=== PATIENT | female | born 1990 | race African-American/Black ===

== ENCOUNTER 2021-03-05 14:22 | Emergency (ER) | payer OTHER, BC, SELFPAY ==
--- NOTE | 2021-03-05 14:31 | ED.UPPEXIN ---
HPI - Extremity Injury (Upper) General Chief Complaint: Extremity Injury, Upper Stated Complaint: lt hand ring & pinkie finger injury Time Seen by Provider: 03/05/21 14:31 Source: patient and RN notes reviewed History of Present Illness HPI narrative: Patient is a 30-year-old female who presents the urgent care with complaints of cuts to the left pinky finger and left ring finger. Patient states that it happened approximately 30 minutes prior to arrival while trying to hold the door open it [employer]. Patient states that she cut her fingers on the metal door frame. Patient has applied bandages to the fingers but otherwise has not done anything [id number] for her symptoms. Patient states she did reported to the information systems manager of [employer] over [employer]. No other acute complaints or injuries. No acute distress noted. Patient aware of the plan of care. Some parts of this dictation were generated by voice recognition software and may contain typographical and/or grammatical inaccuracies. Related Data Home Medications Medication Instructions Recorded Confirmed No Home Medications 03/05/21 03/05/21 Allergies Allergy/AdvReac Type Severity Reaction Status Date / Time codeine Allergy Unknown Unknown Verified 03/05/21 14:37 Review of Systems Review of Systems: CONSTITUTIONAL: Denies fever, chills, or sweats. EYES: Denies visual changes, redness, or discharge. ENT: Denies rhinorrhea, congestion, sore throat, or otalgia. CARDIOVASCULAR: Denies chest pain, palpitations, or edema. RESPIRATORY: Denies cough or dyspnea. GASTROINTESTINAL: Denies abdominal pain, nausea, vomiting, or diarrhea. GENITOURINARY: Denies dysuria or hematuria. SKIN: Reports of lacerations to the fourth and fifth digit of the left hand MUSCULOSKELETAL: Denies back pain, joint pain, or myalgia. NEUROLOGIC: Denies headache, numbness, or weakness. All other systems reviewed are negative, except as documented in HPI. PMFSH Social History Social History Smoking status: Never smoker Alcohol intake: current Comments At the time of my signature, I reviewed and agree with the nursing past medical, surgical, social, and family history. There is no relevant family history pertinent to the patient complaint. Exam Narrative: GENERAL: This is a well-nourished, well-developed patient, in no apparent distress. HEAD: normocephalic, atraumatic. EYES: PERRL. Sclera clear/white. Vision is grossly intact. EARS: External ears normal NOSE: External nose normal with no obvious nasal discharge, nares without redness, no rhinorrhea. THROAT: Mucous membranes moist NECK: Neck supple CARDIOVASCULAR: Regular rate and rhythm without murmurs, gallops, or rubs. RESPIRATORY: Clear to auscultation. Breath sounds equal bilaterally. No wheezes, rales, or rhonchi. SKIN: 0.25 circular superficial skin abrasion just proximal of the cuticle on the left fifth digit/pinky finger. Pinpoint superficial abrasion to the cuticle of the left ring finger. NEURO: awake, alert, and oriented to person, place and time. There were no obvious focal neurologic abnormalities. EXTREMITIES: No clubbing, cyanosis, or edema. Positive strong left radial pulse with capillary refill less than 2 seconds. Course Vital Signs Vital signs: Vital Signs Temperature 98.6 F 03/05/21 14:34 Pulse Rate 110 H 03/05/21 14:34 Respiratory Rate 16 03/05/21 14:34 Blood Pressure 146/111 H 03/05/21 14:34 Pulse Oximetry 100 03/05/21 14:34 Temperature 98.6 F 03/05/21 14:34 Pulse Rate 110 H 03/05/21 14:34 Respiratory Rate 16 03/05/21 14:34 Blood Pressure 146/111 H 03/05/21 14:34 Pulse Oximetry 100 03/05/21 14:34 Reviewed-patient is informed that they may have pre-hypertension or hypertension based on a blood pressure reading in the department. I recommend the patient call the primary care provider listed on their discharge instructions or a physician of their choice this week to arrang
[2021-03-05 14:34] VITALS: BP 146/111; PULSE 110; RESP 16; TEMP 37; O2SAT 100
== END 2021-03-05 14:44 | disposition home or self-care (01) ==
PROVIDERS: Emergency Provider Nurse Practitioner Family
DX: S60.417A Abrasion of left little finger, initial encounter (principal); W26.8XXA Contact with other sharp object(s), not elsewhere classified, initial encounter; Y92.511 Restaurant or cafe as the place of occurrence of the external cause
CPT/HCPCS: 99213; G0463

== ENCOUNTER 2021-08-26 02:31 | Inpatient (IN) | payer BC, SELFPAY ==
[2021-08-26] VITALS (17 sets, daily range): BP systolic 124–180; BP diastolic 70–141; PULSE 72–147; RESP 16; TEMP 36.7–36.8; O2SAT 99–100; BMI 39.2
--- NOTE | 2021-08-26 03:04 | LDADM ---
This patient, Mireya Palomino, was admitted to Labor/Delivery/Recovery 105 on 08/26/21 at 02:31. Plans for labor, pain management and were discussed with patient. Patient/family oriented to hospital policies and general routines including ID bracelet, bed and alarms, visiting hours, pain management, procedures, bathroom and other care routines, personal items, smoking policy, room service/diet and guest tray routines, security routines, and visiting hours. Patient/Family are encouraged to report perceived risks to care and to ask questions if they do not understand what they are told or what they should do. See OBIX for further documentation.
[2021-08-26] MEDS: OXYTOCIN 30 UNITS/NS 500 ML 30 UNITS/500 ML BAG 999 UNITS (03:30)
--- NOTE | 2021-08-26 03:35 | PM.IMHP ---
H&P: HPI History of Present Illness Date/Time: 08/26/21 03:35 Chief Complaint: Intrauterine Narrative: 31 yo at unknown GA presents in labor. Pt has had no care in this . Pt states she did not know she was until 7 months. She states she received an US somewhere but she cannot recall where. She states she was given the due date of 08/30/21. Pt was found to be 8-9cm upon arrival. Pt does state she is Bipolar. She also suffers depression/anxiety. Pt also states she had preeclampsia in her G1. Review of Systems Cardiovascular: Cardiovascular: Denies chest pain, Denies leg edema, Denies palpitations, Denies dyspnea and Denies dyspnea on exertion Respiratory: Respiratory: Denies cough, Denies dyspnea and Denies dyspnea on exertion Gastrointestinal: Gastrointestinal: Denies abdominal pain, Denies constipation, Denies diarrhea, Denies nausea and Denies vomiting Genitourinary: Genitourinary: Denies hematuria, Denies urinary frequency, Denies dysuria, Denies pelvic pain, Denies urinary incontinence and Denies vaginal discharge Neurologic: Reports system reviewed and no additional complaints, except as documented Psychiatric: Psychiatric: Reports no additional psychiatric complaints Endocrine: Endocrine: Denies palpitations PMFSH Social History Social History Smoking status: Never smoker Alcohol intake: current Spiritual care concerns: No Meds Home Medications and Allergies Home Medications Medication Instructions Recorded Confirmed Type No Home Medications 03/05/21 03/05/21 History Allergies Allergy/AdvReac Type Severity Reaction Status Date / Time codeine Allergy Unknown Unknown Verified 03/05/21 14:37 Vital Signs Vital Signs - 24 hr 08/26/21 02:48 08/26/21 03:02 08/26/21 03:04 Pulse Rate 109 H 147 H Blood Pressure 156/106 H 124/109 H Pulse Oximetry 100 08/26/21 03:09 08/26/21 03:31 Pulse Rate 104 H Blood Pressure 148/84 H Pulse Oximetry 99 Exam Const: General: no acute distress Eyes: EOM: EOMs intact bilaterally Neck: Neck: supple Thyroid: thyroid normal Chest: Breast/axilla inspection: normal inspection of the breasts Breast/axilla palpation: normal palpation of the breasts, normal palpation of the axillae and no axillary lymphadenopathy Resp: Effort & Inspection: normal respiratory effort Auscultation: clear to auscultation bilaterally Cardio: Rate: regular rate Rhythm: regular rhythm GI: Inspection: non-distended and other (Gravid) GI Palp: Yes Soft to palpation, No Tenderness to palpation present (GI) and No Guarding due to palpation present (GI) Auscultation: normal bowel sounds : Speculum Exam - Vagina: No vaginal bleeding OB/external & speculum: external exam normal; No vaginal bleeding Skin: General skin exam: normal color and no rashes or lesions noted Neuro: Cognition (Neuro): normal cognition Speech: normal speech Extrem: General: normal to inspection Psych: Mental Status: mental status grossly normal Affect: normal affect Assessment and Plan Assessment and plan (1) Supervision of high risk , unspecified, unspecified trimester: Code(s): O09.90 - Supervision of high risk , unspecified, unspecified trimester Status: Acute Assessment and Plan: 31 yo at unknown GA no care pt presents in labor cvx 8-9 cm admit to L&D routine admission orders expectant management (2) No care in current : Code(s): O09.30 - Supervision of with insufficient care, unspecified trimester Status: Acute (3) History of pre-eclampsia in prior , currently : Code(s): O09.299 - Supervision of with other poor reproductive or obstetric history, unspecified trimester Status: Acute Assessment and Plan: elevated BP on admission will draw PIH labs continue to monitor BP (4) [place]
--- NOTE | 2021-08-26 03:44 | PM.OBPRVD ---
OB - Delivery Note Procedure Procedure: Patient pushed for a spontaneous vaginal delivery. A body cord was noted x1. The fetus was delivered atraumatically and placed on the maternal abdomen. The cord was clamped and cut after 1 minute of life. The cord was double clamped and cut and a segment of cord was collected for cord gases. Cord blood was collected for blood type and Coomb's testing. The placenta delivered spontaneously and was noted to be intact. The perineum was inspected and there were no lacerations noted. The uterus was firm and good hemostasis was noted. The patient and fetus were stable in the delivery room. Events: No Care Induction method: None Delivery augmentation: Rupture of Membranes Delivery monitor: External FHT Route of delivery: Episiotomy description: None Laceration Description: None Specimen: No Quantitative Blood Loss (ml): 200 Anesthesia type: None Disposition: Floor () Complications: No immediate complications [place] Baby Date of : 08/26/21 Time of : 03:20 Weeks of gestation at delivery: 39 gender: Female Weight (pounds): 8 Weight (ounces): 2 presentation: vertex position: Right Occiput Anterior Placenta delivery description: Spontaneous Cord Vessel Description: 3 Vessels and Around Body score one minute: 8 score five minutes: 9
[2021-08-26 06:33] LABS: Basophils Percent Auto 0.2 % (0.2-1.2); Hematocrit 33.2 % (37.0-47.0); Hemoglobin 9.4 g/dL (12.0-15.0); Immature Granulocyte Absolute 0.13 K/mm3 (0.00-0.031); Immature Granulocyte Percent A 0.7 % (0-0.5); Lymphocytes Absolute Auto 1.08 K/mm3 (0.9-3.2); Mean Corpuscular HGB Conc 28.3 g/dl (32-36); Mean Corpuscular Volume 88.3 fl (80-100); Mean Platelet Volume 12.7 fl (7.4-10.4); Monocytes Absolute Auto 0.9 K/mm3 (0.1-0.6); Neutrophils Absolute Auto 15.8 K/mm3 (1.3-6.7); Neutrophils Percent Auto 88.1 % (45.5-73.1); Nucleated Red Blood Cells Absolute Auto 0.1 K/mm3 (0.0-0.012); Nucleated Red Blood Cells Perc 0.3 % (0.0-0.2); Platelet Count Result 205 k/mm3 (150-375); Red Blood Count 3.76 M/mm3 (4.2-5.4); Red Cell Distribution Width 17.2 % (11.5-14.5)
[2021-08-26 06:50] LABS: Alanine Aminotransferase 36 U/L (4-35); Alkaline Phosphatase 171 U/L (38-126); Anion Gap 7 mmol/L (8-16); Aspartate Amino Transferase 44 U/L (14-36); Bilirubin,Total 0.4 mg/dL (0.2-1.3); Blood Urea Nitrogen 7 mg/dL (7-17); Calcium 8.8 mg/dL (8.4-10.2); Carbon Dioxide 21 mmol/L (22-30); Chloride 106 mmol/L (98-107); Estimated CRCL calculation 128 ml/min; Estimated Glomerular Filt Rate > 60; Glucose 97 mg/dL (65-110); Potassium 4.2 mmol/L (3.4-5.0); Sodium 134 mmol/L (137-145)
[2021-08-26 06:56] LABS: Platelet Estimate Adequate (Adequate)
[2021-08-26 06:57] LABS: Anisocytosis 1+ (NORMAL); Hypochromasia 1+ (NORMAL)
[2021-08-26] MEDS: DOCUSATE SODIUM 100 MG CAPSULE PO ×2 (07:38→16:30)
[2021-08-26] MEDS: IBUPROFEN 600 MG TABLET PO ×3 (07:38→19:52)
[2021-08-26] MEDS: MULTIVIT/MIN/PREN/FOL AC/IRON TABLET 1 TAB PO (07:38)
[2021-08-26 07:53] LABS: Rubella IgG Antibody 15.1 IU/ML
[2021-08-26 07:54] LABS: Rapid Plasma Reagin Non-Reactive (NonReactive)
[2021-08-26 07:58] LABS: Hepatitis B Surface Antigen Negative (Negative)
[2021-08-26 08:05] LABS: HIV 1/2 Ab P24 Ag Result Negative (Negative)
--- NOTE | 2021-08-26 12:48 | PCCCNOTE ---
Recvd notification that pt. did not have any prior care. Pt. 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 Upon arrival to the hospital, it was reported by nursing that pt. was acting irrational and refused labs drawn as well as drug screen - all this occurred during labor. Baby's UDS was negative for everything and no umbilical cord drug screen was ordered. Pt. has since been appropriate with baby per MJ Chakraborty. Pt's spouse Cristina at bedside, sleeping. Pt. reports she and new baby girl will be living at home with FOB Cristina, and two other children. Pt. reports recently joining a support group for moms regarding post support. Pt. states her family is also involved in helping with childcare. Pt. reports having all necessary supplies for new baby and states she is not interested in WIC or Food [place]. resources provided to pt, which includes these phone numbers, in case needed. Pt. denies prior involvement with DCFS and denies drug use. Pt. reports being established with a counselor for her anxiety and depression, but wouldn't provide counselor name. Pt. states her next appt with her counselor, is Saturday09/01/21. Pt. states she is not on any medication. Psych consult was ordered; awaiting results from Dr. Corrigan. MJ Chakraborty updated regarding our conversation.
[2021-08-26] MEDS: POLYSACCHARIDE IRON COMPLEX 150 MG CAPSULE PO (16:30)
[2021-08-26] MEDS: ACETAMINOPHEN 325 MG TABLET 650 MG PO ×2 (16:30→23:13)
[2021-08-27] MEDS: IBUPROFEN 600 MG TABLET PO ×2 (03:52→09:09)
[2021-08-27 05:43] LABS: Basophils Absolute Auto 0.1 K/mm3 (0.0-0.1); Basophils Percent Auto 0.4 % (0.2-1.2); Eosinophils Absolute Auto 0.1 K/mm3 (0-0.3); Eosinophils Percent Auto 0.8 % (0-4.4); Hematocrit 29.2 % (37.0-47.0); Hemoglobin 8.6 g/dL (12.0-15.0); Immature Granulocyte Absolute 0.15 K/mm3 (0.00-0.031); Immature Granulocyte Percent A 1.1 % (0-0.5); Lymphocytes Absolute Auto 2.66 K/mm3 (0.9-3.2); Lymphocytes Percent Auto 20.2 % (18.3-44.2); Mean Corpuscular HGB Conc 29.5 g/dl (32-36); Mean Corpuscular Hemoglobin 25.4 pg (26-34); Mean Corpuscular Volume 86.1 fl (80-100); Mean Platelet Volume 12.9 fl (7.4-10.4); Monocytes Absolute Auto 1.1 K/mm3 (0.1-0.6); Monocytes Percent Auto 8.4 % (2.6-8.5); Neutrophils Absolute Auto 9.1 K/mm3 (1.3-6.7); Neutrophils Percent Auto 69.1 % (45.5-73.1); Nucleated Red Blood Cells Absolute Auto 0.2 K/mm3 (0.0-0.012); Nucleated Red Blood Cells Perc 1.3 % (0.0-0.2); Platelet Count Result 217 k/mm3 (150-375); Red Blood Count 3.39 M/mm3 (4.2-5.4); Red Cell Distribution Width 17.4 % (11.5-14.5); White Blood Count 13.2 K/mm3 (4.5-10.0)
[2021-08-27 05:58] LABS: Alanine Aminotransferase 26 U/L (4-35); Albumin Level 3.5 g/dL (3.5-5.1); Alkaline Phosphatase 131 U/L (38-126); Anion Gap 3 mmol/L (8-16); Aspartate Amino Transferase 33 U/L (14-36); Bilirubin,Total 0.3 mg/dL (0.2-1.3); Blood Urea Nitrogen 7 mg/dL (7-17); Calcium 8.5 mg/dL (8.4-10.2); Carbon Dioxide 24 mmol/L (22-30); Chloride 104 mmol/L (98-107); Estimated CRCL calculation 128 ml/min; Estimated Glomerular Filt Rate > 60; Glucose 99 mg/dL (65-110); Potassium 4.2 mmol/L (3.4-5.0); Sodium 131 mmol/L (137-145)
[2021-08-27 06:38] LABS: Anisocytosis 2+ (NORMAL); Hypochromasia 1+ (NORMAL); Platelet Estimate Adequate (Adequate)
[2021-08-27 06:39] LABS: Ovalocytes 1+ (NORMAL); Stomatocytes 2+ (NORMAL); Tear Drop Cells 1+ (NORMAL)
[2021-08-27] MEDS: POLYSACCHARIDE IRON COMPLEX 150 MG CAPSULE PO (09:09)
[2021-08-27] MEDS: DOCUSATE SODIUM 100 MG CAPSULE PO (09:09)
[2021-08-27] MEDS: MULTIVIT/MIN/PREN/FOL AC/IRON TABLET 1 TAB PO (09:09)
[2021-08-27 09:15] VITALS: BP 145/96; PULSE 90; RESP 16; TEMP 36.7; O2SAT 100
--- NOTE | 2021-08-27 11:07 | PM.OBDSVD ---
DS: Admitting Diagnosis Discharge Date 08/27/21 Admitting Diagnosis intrauterine at term no care OB - DS: Summary OB Procedures : None OB Procedures Intrapartum: Spontaneous Vag Delivery OB Procedures: : None Peripartum Data Infant Delivery Method: Natural Vaginal Laceration Description: None complications: none Status at Discharge Functional status at discharge: independent ambulation Overall status at discharge: patient is back to baseline Time Spent with Patient Time attestation: Total time spent providing and/or coordinating discharge services: Time spent: Less than 30 minutes Exam Const: General: comfortable and no acute distress Resp: Effort & Inspection: normal respiratory effort Auscultation: clear to auscultation bilaterally Cardio: Rate: regular rate GI: GI Palp: Yes Soft to palpation Auscultation: normal bowel sounds Other: Fundus firm below umbilicus Psych: Appearance: grossly normal Mental Status: mental status grossly normal Affect: normal affect DS: Data Data Completed and Pending Labs on day of discharge: Labs from last 24 hours 08/27/21 08/27/21 05:32 05:32 WBC 13.2 H RBC 3.39 L Hgb 8.6 L Hct 29.2 L MCV 86.1 MCH 25.4 L MCHC 29.5 L RDW 17.4 H Plt Count 217 MPV 12.9 H Immature Gran % (Auto) 1.1 H Neut % (Auto) 69.1 Lymph % (Auto) 20.2 [place] % (Auto) 8.4 Eos % (Auto) 0.8 Baso % (Auto) 0.4 Lymph # (Auto) 2.66 [place] # (Auto) 1.1 H Eos # (Auto) 0.1 Baso # (Auto) 0.1 Abs Immat Gran (auto) 0.15 H Absolute Neuts (auto) 9.1 H Absolute Nucleated RBC 0.2 H Nucleated RBC % 1.3 H Platelet Estimate Adequate Hypochromasia 1+ Anisocytosis 2+ Tear Drop Cells 1+ Ovalocytes 1+ Stomatocytes 2+ Sodium 131 L Potassium 4.2 Chloride 104 Carbon Dioxide 24 Anion Gap 3 L BUN 7 Creatinine 0.70 Estim Creat Clear Calc 128 Estimated GFR > 60 Glucose 99 Calcium 8.5 Total Bilirubin 0.3 AST 33 ALT 26 Alkaline Phosphatase 131 H Total Protein 7.0 Albumin 3.5 Discharge Plan Discharge Consulting providers: Silver Corrigan Discharging Clinician: Juan M Watson Patient Disposition: Home, Self-Care Activity: as tolerated and pelvic rest Diet: regular Patient Instructions: Antibiotic Form, Preeclampsia and Eclampsia After Delivery (GEN), Vaginal Delivery (GEN) Stand Alone Forms: General Discharge Information Follow-up/Referrals: Juan M Watson MD [Physician] - 1 Week Discharge Medications: New polysaccharide iron complex 150 mg iron Capsule 150 mg PO BIDWM Qty: 60 RF: 0 acetaminophen [Mapap (acetaminophen)] 325 mg Tablet 650 mg PO Q6H PRN (Reason: Mild Pain (1-3) Or Headache) Qty: 30 RF: 0 ibuprofen 600 mg Tablet 600 mg PO Q6H PRN (Reason: Cramping) Qty: 30 RF: 0 No Action No Home Medications RF: 0 Date of admission: 08/26/21 02:33 Primary Care Provider: UNKNOWN,DOCTOR Admitting Provider: Juan M Watson Attending physician on admission: Juan M Watson Condition: Stable
[2021-08-29 12:45] VITALS: BP 153/92; PULSE 102; RESP 18; TEMP 37.2; O2SAT 100
== END 2021-08-27 12:40 | disposition home or self-care (01) | DRG 833 ==
LOC: ANHLDR 06:26 → ANHOB2 07:12
PROVIDERS: Admitting Provider Student in an Organized Health Care Education/Training Program; Visit Provider Student in an Organized Health Care Education/Training Program
DX: O62.3 Precipitate labor (principal); Z37.0 Single live birth; Z3A.39 39 weeks gestation of pregnancy; O13.4 Gestational [pregnancy-induced] hypertension without significant proteinuria, complicating childbirth; O69.82X0 Labor and delivery complicated by other cord entanglement, without compression, not applicable or unspecified; O99.344 Other mental disorders complicating childbirth; F31.9 Bipolar disorder, unspecified; F41.9 Anxiety disorder, unspecified
CPT/HCPCS: 36415; 80053; 85025; 86592; 86703; 86762; 86850; 86900; 86901; 87340; 88307; A9270; G0432; J2590

== ENCOUNTER 2023-12-30 21:44 | Emergency (ER) | payer BC, SELFPAY ==
[2023-12-30] VITALS (11 sets, daily range): BP systolic 187–221; BP diastolic 101–127; PULSE 104–150; RESP 13–25; TEMP 36.2; O2SAT 95–100
--- NOTE | ~2023-12-30 | XR_ITS ---
EXAMINATION: XR chest ET placement Exam Date/Time: 12/30/2023 22:30 CDT HISTORY: ett placement Comparison: 08/09/2015. RESULT: Lines, tubes, and devices: Endotracheal tube terminating 2.7 cm above the jean. Lungs and pleura: Lordotic positioning with leftward rotation and overlapping breast tissue which sweet its evaluation. Moderate patchy bilateral perihilar airspace disease. Cardiomediastinal silhouette: Stable. Other: No acute osseous or upper abdominal finding. IMPRESSION: Endotracheal tube terminates 2.7 cm above the jean. Pulmonary opacities may represent moderate pulmonary edema. Infection/aspiration should remain in the differential. Reviewed, dictated and finalized at [facility]. IMPRESSION: Endotracheal tube terminates 2.7 cm above the jean. Pulmonary opacities may represent moderate pulmonary edema. Infection/aspiratio n should remain in the differential.
--- NOTE | ~2023-12-30 | XR_ITS ---
EXAM: XR abdomen gastric tube insert DATE: 12/30/2023 23:32 HISTORY: NG TUBE PLACEMENT . COMPARISON: None available. FINDINGS: Patchy bilateral hilar and subsegmental left basilar opacities. Left costophrenic angle bl unting. NG tube, tip over the stomach, side port at the distal esophagus. Normal upper abdominal sage l gas pattern. IMPRESSION: Shallow positioned NG tube, consider advancing by 8 cm. Pulmonary opacities may represent edema or infection. Aspiration should remain in the differential. Possible small left pleural effusi on. Reviewed, dictated and finalized at location [facility]. IMPRESSION: Shallow positioned NG tube, consider advancing by 8 cm. Pulmonary o pacities may represent edema or infection. Aspiration should remain in the diff erential. Possible small left pleural effusion.
[2023-12-30] MEDS: diphenhydrAMINE HCl INJ 50 MG/ML VIAL IV PUSH (22:01)
[2023-12-30] MEDS: methylPREDNISolone SOD SUCC 125 MG VIAL IV PUSH (22:01)
[2023-12-30] MEDS: SODIUM CHLORIDE 0.9% IV 1,000 ML 999 ML IV CONT (22:02)
[2023-12-30] MEDS: FAMOTIDINE 20 MG/2 ML VIAL IV PUSH (22:02)
--- NOTE | 2023-12-30 22:02 | PC.NURSE ---
edp at bedside. plans to call anesthia to assist with intubation. 2 OB rn present for monitoring
--- NOTE | 2023-12-30 22:18 | PC.NURSE ---
2217 anasthesiologist arrivied 2218 anasthesiologist gave 200 of SUC
--- NOTE | 2023-12-30 22:21 | PC.NURSE ---
2535 449 propofol given by anesthesiologist
--- NOTE | 2023-12-30 22:22 | PC.NURSE ---
2222 50 of sony GIVEN PT INTUBATED with 7.5 ett, 25 at the lip, with positive color change
--- NOTE | 2023-12-30 22:22 | ED.GENADULT ---
HPI - General Adult General Chief complaint: Allergic Reaction Stated complaint: ALLERGIC REACTION, 8 MONTHS Time Seen by Provider: 12/30/23 21:44 History of Present Illness HPI narrative: Patient 33-year-old for chief complaint of allergic reaction. Patient is currently approximately 8 months and is supposed to deliver at [facility]. The patient today noticed that her tongue started swelling and EMS was called. Patient was found to have significant angioedema and was unable to provide history Related Data Allergies Allergy/AdvReac Type Severity Reaction Status Date / Time codeine Allergy Unknown Unknown Verified 03/05/21 14:37 Review of Systems Review of Systems: A 10 system review of systems was completed on the patient and is negative except for what is stated in the HPI. Nursing and ancillary documentation was reviewed. [facility] Social History Social History Smoking status: Never smoker Alcohol intake: current Spiritual care concerns: No Exam Narrative: GENERAL: Anxious, in moderate distress HEAD: Normocephalic, atraumatic. EYES: PERRLA and EOMI. ENT: Nares clear, no rhinorrhea or epistaxis. Mucous membranes moist. Tongue is significantly swollen protruding from the mouth no stridor NECK: Supple. CHEST: Clear to auscultation. No respiratory distress. HEART: Regular rate and rhythm. No murmur heard. Normal peripheral pulses. ABDOMEN: Soft, nontender, nondistended, normal active bowel sounds. Gravid EXTREMITIES: Normal range of motion. No edema. SKIN: Warm, dry, no rash. NEURO: No focal deficits. Alert unable to talk due to angioedema. PSYCH: Normal mood and affect. Course Vital Signs Vital signs: Vital Signs Temperature 36.2 C L 12/30/23 21:45 Pulse Rate 112 H 12/30/23 21:45 Respiratory Rate 13 12/30/23 21:45 Blood Pressure 187/101 H 12/30/23 21:45 Pulse Oximetry 95 12/30/23 21:45 Oxygen Delivery Room Air 12/30/23 21:45 Temperature 36.2 C L 12/30/23 21:45 Pulse Rate 128 H 12/31/23 01:10 Respiratory Rate 30 H 12/31/23 00:40 Blood Pressure 187/101 H 12/31/23 01:10 Pulse Oximetry 98 12/31/23 00:52 Oxygen Delivery Mechanical Ventilation 12/31/23 00:52 Oxygen Flow Rate 12 12/30/23 22:05 Fraction of Inspired Oxygen 100 12/31/23 00:52 Medical Decision Making MDM Narrative Medical decision making narrative: Differential diagnosis includes preeclampsia, angioedema, allergic reaction, anaphylaxis Given the significance of angioedema the patient did receive CV epinephrine pre-hospital by EMS upon arrival emergency department patient's angioedema was significant and due to that the case was discussed with Anesthesia who assisted with securing the patient's airway for airway protection. Patient was started on sedation patient was still significantly hypertensive the patient was started on magnesium sulfate for empiric coverage into the case the patient was preeclamptic. Laboratory studies did show mildly elevated liver enzymes and urinalysis was positive for protein. The case was initially discussed with Dr. Mcconnell and Dr. Reyes at [facility] case was also discussed with the broadcast engineer at [facility] at this time there is no beds available in the ICU the case was then discussed with the ICU at [place] with the MICU practitioner Shabnam and patient was accepted by Dr. Dalton to the medical intensive care unit. The patient was showing signs of contractions and was 2.5 cm dilated per labor and delivery nurse evaluation. [place] had to place the place shunt on a wait list and a bed became available at [facility] the patient is accepted at [facility] now Vital Signs Vital Signs: Vital Signs Temperature 36.2 C L 12/30/23 21:45 Pulse Rate 112 H 12/30/23 21:45 Respiratory Rate 13 12/30/23 21:45 Blood Pressure 187/101 H 12/30/23 21:45 Pulse Oximetry
[2023-12-30] MEDS: PROPOFOL IV EMULSION 100 ML 3.61 MG IV CONT (22:26)
--- NOTE | 2023-12-30 22:38 | W.PM.PROC2 ---
Procedure Note - Detailed Date of Procedure 12/30/23 Pre-op Diagnosis Angioedema Post-op Diagnosis Same Procedure Performed emergent Intubation Surgeon Jayy Cueto Jr., BUSINESS OFFICE DIRECTOR, DR Mann Peterson DO Anesthesia General Indications Angioedema Findings Swollen tongue protruding from pts mouths Description of Procedure Glidescope number [address] a 7.5 ETT at a de[th of 25cm at Lips. Verified by auscultation, colormetric change and presence of fog in the tube. Secured by respiratory with ETT davies. Implants 7.5 ETT Complications None Disposition Other (Remains in ER awaiting transfer to [facility])
[2023-12-30 22:46] LABS: Basophils Percent Auto 0.1 % (0.2-1.2); Hematocrit 41.3 % (37.0-47.0); Immature Granulocyte Absolute 0.14 K/mm3 (0.00-0.031); Immature Granulocyte Percent A 0.7 % (0-0.5); Lymphocytes Absolute Auto 1.23 K/mm3 (0.9-3.2); Lymphocytes Percent Auto 5.7 % (18.3-44.2); Mean Corpuscular HGB Conc 31.5 g/dl (32-36); Mean Corpuscular Hemoglobin 30.3 pg (26-34); Mean Corpuscular Volume 96.3 fl (80-100); Mean Platelet Volume 13.5 fl (7.4-10.4); Monocytes Absolute Auto 0.9 K/mm3 (0.1-0.6); Neutrophils Absolute Auto 19.2 K/mm3 (1.3-6.7); Neutrophils Percent Auto 89.5 % (45.5-73.1); Nucleated Red Blood Cells Perc 0.1 % (0.0-0.2); Platelet Count Result 185 k/mm3 (150-375); Red Blood Count 4.29 M/mm3 (4.2-5.4); Red Cell Distribution Width 14.4 % (11.5-14.5); White Blood Count 21.5 K/mm3 (4.5-10.0)
[2023-12-30 22:56] LABS: Alanine Aminotransferase 38 U/L (6-35); Alkaline Phosphatase 205 U/L (38-126); Anion Gap 16 mmol/L (4-12); Aspartate Amino Transferase 63 U/L (14-36); Bilirubin,Total 0.6 mg/dL (0.2-1.3); Blood Urea Nitrogen 11 mg/dL (7-17); Calcium 9.3 mg/dL (8.4-10.2); Carbon Dioxide 19 mmol/L (22-30); Chloride 103 mmol/L (98-107); Estimated CRCL calculation 69 ml/min; Estimated Glomerular Filt Rate 56; Glucose 104 mg/dL (65-110); Sodium 138 mmol/L (137-145); Triglycerides 335 mg/dL (<150)
[2023-12-30] MEDS: FENTANYL 2,500MCG/NS250ML(*CRX 2,500 MCG/250 ML BAG IV CONT (22:58)
[2023-12-30] MEDS: LABETALOL HCL INJ 100 MG/20 ML VIAL 20 MG IV PUSH (22:59)
[2023-12-30] MEDS: MAGNESIUM SULF 4 GM/WATER100ML 4 GM/100 ML BAG IVPB (23:00)
[2023-12-30 23:06] LABS: Appearance Urine Cloudy (Clear); Bacteria Urine None Seen /hpf; Bilirubin Urine Negative (Negative); Blood Urine 3+ (Negative); Color Urine Dark Yellow (Yellow); Glucose Urine UA Negative (Negative); Ketones Urine 3+ mg/dL (Negative); Leukocyte Esterase Ur Negative LEU/UL (Negative); Need Manual Microscopic Reviewed; Nitrate Urine Negative (Negative); Non Pathogenic Casts >20; Protein Urine 4+ mg/dL (Negative); Specific Grav Ur 1.041 (1.001-1.035); Squamous Epithelial Cell Urine Moderate /hpf (Few); Urobilinogen Urine 0.2 mg/dL (<2.0); WBC Urine 0-5 /hpf (0-3)
--- NOTE | 2023-12-30 23:09 | PC.NURSE ---
Cervical exam performed, 2.5 cm, 80% effacement, minus 1.
--- NOTE | 2023-12-30 23:09 | PC.NURSE ---
OB RN at bedside noticed the FHR elevated at 190 and some accelerations. OB RN checked the pt and said she's 80-90% 2.5 cm -1
[2023-12-30 23:10] LABS: Add Urine Microscopic? YES
--- NOTE | 2023-12-30 23:16 | PC.NURSE ---
OB RN at bedside says the pt is still juliet. FHR 141
[2023-12-30] MEDS: SODIUM CHLORIDE 0.9% IV 1,000 ML 125 ML IV CONT (23:29)
[2023-12-30] MEDS: LABETALOL HCL INJ 200 MG in DEXTROSE 5% IN WATER 160 ML 120 MG IV CONT (23:40)
[2023-12-30] MEDS: MAGNESIUM SULF 20GM/WATER500ML 500 ML 50 MG IV CONT (23:45)
[2023-12-30 23:46] LABS: Amphetamine Screen Urine Negative (Negative); Barbiturate Screen Urine Negative (Negative); Benzodiazepines Screen Urine Negative (Negative); Cannabinoid Screen Urine Negative (Negative); Cocaine Screen Urine Negative (Negative); Methadone Screen Urine Negative (Negative); Opiate Screen Urine Negative (Negative); Phencyclidine Screen Urine Negative (Negative)
--- NOTE | 2023-12-30 23:51 | PC.NURSE ---
Pt family updated, at bedside
--- NOTE | 2023-12-30 23:52 | PC.NURSE ---
[id number] Dopple heart tones, 113-175 beats per minute.
[2023-12-31 00:05] VITALS: BP 193/114; PULSE 100; RESP 32; O2SAT 99
--- NOTE | 2023-12-31 00:37 | PC.NURSE ---
Report given to Radha BARKER at [facility] in [place]. Bed #390-2
[2023-12-31 00:40] VITALS: BP 181/117; PULSE 97; RESP 30; O2SAT 98
[2023-12-31 00:52] VITALS: PULSE 98; O2SAT 98
[2023-12-31 01:10] VITALS: BP 187/101; PULSE 128
--- NOTE | 2023-12-31 01:37 | PCRCNOTE ---
Patient off hospital Vent @ 0110 and transferred to another facility.
== END 2023-12-31 01:26 | disposition short-term general hospital (02) ==
PROVIDERS: Emergency Provider Emergency Medicine
DX: O9A.213 Injury, poisoning and certain other consequences of external causes complicating pregnancy, third trimester (principal); T78.3XXA Angioneurotic edema, initial encounter; O14.93 Unspecified pre-eclampsia, third trimester; Z3A.00 Weeks of gestation of pregnancy not specified
CPT/HCPCS: 31500; 36415; 80053; 80307; 81001; 84478; 85025; 85055; 96365; 96366; 96367; 96375; 96376; 99285; J1200; J2704; J2919; J3010; J3475; J7030; J7060